=== PATIENT | female | born 1985 | race Caucasian/White ===

== ENCOUNTER 2023-05-03 09:21 | Observation (INO) | payer OTHER ==
[2023-05-03] MEDS ORDERED: Morphine 4 MG/ML VIAL ONE ×3 (10:21→17:16)
[2023-05-03] MEDS ORDERED: Ondansetron PF 4 MG/2 ML Vial ONE ×2 (10:22→17:16)
[2023-05-03 10:23] LABS: #Eosinphils 0.1 thou/uL (0.0-0.7); #Monocytes 0.5 thou/uL (0.11-0.59); #Neutrophils 4.1 thou/uL (1.40-6.50); %Basophils 0.6 % (0.0-1.0); %Eosinophils 0.7 % (0.0-10.0); %Lymphocytes 31.3 % (21.0-51.0); %Monocytes 6.7 % (0.0-10.0); %Neutrophils 60.6 % (42.0-75.0); Hemoglobin 11.4 g/dL (12.0-16.0); Mean Corpuscular HGB CONC 31.1 g/dL (32.0-36.0); Mean Corpuscular Hemoglobin 25.9 pg (27.0-31.0); Mean Platelet Volume 10.1 fL (7.4-10.4); Platelet Count 241 10x3/uL (130-400); RBC Distribution Width 16.1 % (11.5-14.5); Red Blood Cell (RBC) Count 4.41 mill/uL (4.20-5.40); White Blood Cell (WBC) Count 6.7 10x3/uL (4.8-10.8)
[2023-05-03 10:50] LABS: ALT (SGPT) 8 U/L (8-55); AST (SGOT) 14 U/L (5-34); Alkaline Phosphatase 85 U/L (40-110); Anion Gap 10 mmol/L (10-20); BUN (Urea Nitrogen) 9 mg/dL (7.0-18.7); Bilirubin, Total 0.4 mg/dL (0.2-1.2); Calc. Creatinine Clearance 0 mL/min (70-130); Calcium 9.1 mg/dL (7.8-10.44); Carbon Dioxide 24 mmol/L (22-29); Chloride 107 mmol/L (98-107); Estimated GFR 114; Globulin 3.1 g/dL (2.4-3.5); Glucose 88 mg/dL (70-105); Lipase Less than 4 U/L (8-78); Potassium 3.8 mmol/L (3.5-5.1); Protein, Total 7.1 g/dL (6.0-8.3); Sodium 137 mmol/L (136-145)
[2023-05-03] MEDS ORDERED: Pantoprazole 40 MG VIAL ONE (11:02)
[2023-05-03] MEDS ORDERED: Dicyclomine 20 MG TAB ONE (12:12)
[2023-05-03] MEDS ORDERED: Acetaminophen 325 MG TAB PO PRN (13:04)
[2023-05-03] MEDS ORDERED: Nicotine 21 MG PATCH TD PRN (13:13)
[2023-05-03] MEDS: NS 0.9% w/ 20 MEQ KCL 1,000 ML/1,000 ML BAG IV SCH (15:25)
[2023-05-03 15:36] VITALS: BMI 45.3
[2023-05-03] MEDS: Morphine 4 MG/ML VIAL SLOW IVP PRN (17:20)
[2023-05-03] MEDS: Ondansetron PF 4 MG/2 ML Vial IVP PRN (17:20)
[2023-05-03] MEDS: Pantoprazole 40 MG VIAL IVP SCH (21:14)
[2023-05-03] MEDS: Morphine 2 MG/ML VIAL SLOW IVP PRN (21:14)
[2023-05-04] MEDS: Morphine 4 MG/ML VIAL SLOW IVP PRN ×2 (00:22→05:49)
[2023-05-04] MEDS: NS 0.9% w/ 20 MEQ KCL 1,000 ML/1,000 ML BAG IV SCH ×2 (00:27→12:06)
[2023-05-04] MEDS: Ondansetron PF 4 MG/2 ML Vial IVP PRN ×2 (05:50→14:16)
[2023-05-04 06:14] LABS: #Eosinphils 0.2 thou/uL (0.0-0.7); #Monocytes 0.5 thou/uL (0.11-0.59); #Neutrophils 3.1 thou/uL (1.40-6.50); %Basophils 0.7 % (0.0-1.0); %Eosinophils 2.7 % (0.0-10.0); %Lymphocytes 34.9 % (21.0-51.0); %Neutrophils 53.4 % (42.0-75.0); Hemoglobin 10.3 g/dL (12.0-16.0); Mean Corpuscular HGB CONC 29.9 g/dL (32.0-36.0); Mean Corpuscular Hemoglobin 25.5 pg (27.0-31.0); Mean Corpuscular Volume 85.1 fl (78.0-98.0); Mean Platelet Volume 9.8 fL (7.4-10.4); Platelet Count 200 10x3/uL (130-400); RBC Distribution Width 16.2 % (11.5-14.5); Red Blood Cell (RBC) Count 4.04 mill/uL (4.20-5.40); White Blood Cell (WBC) Count 5.9 10x3/uL (4.8-10.8)
[2023-05-04 06:37] LABS: Anion Gap 9 mmol/L (10-20); BUN (Urea Nitrogen) 8 mg/dL (7.0-18.7); Calc. Creatinine Clearance 193 mL/min (70-130); Calcium 8.6 mg/dL (7.8-10.44); Carbon Dioxide 25 mmol/L (22-29); Chloride 109 mmol/L (98-107); Estimated GFR 112; Glucose 89 mg/dL (70-105); Potassium 4.3 mmol/L (3.5-5.1); Sodium 139 mmol/L (136-145)
[2023-05-04] MEDS: Pantoprazole 40 MG VIAL IVP SCH (08:45)
[2023-05-04] MEDS ORDERED: Ketamine 50 MG/ML (10ML VIAL) ONE (10:02)
[2023-05-04] MEDS ORDERED: Lidocaine 1% PF 5 ML VIAL ONE (10:05)
[2023-05-04] MEDS ORDERED: PROPOFOL 200 MG/20 ML VIAL ONE (10:05)
[2023-05-04] MEDS ORDERED: fentaNYL 50 mcg/mL 1 mL Vial ONE ×3 (10:21→11:16)
[2023-05-04] MEDS: Morphine 2 MG/ML VIAL SLOW IVP PRN (14:16)
[2023-05-04 14:38] VITALS: BP 155/96; TEMP 98.6
== END 2023-05-04 14:29 | disposition home or self-care (01) ==
LOC: ERS 09:21 → ERHOLD 12:09 → T4-A 18:55
PROVIDERS: ADMIT Family Medicine; ATTEND Internal Medicine
DX: K27.9 Peptic ulcer, site unspecified, unspecified as acute or chronic, without hemorrhage or perforation (principal); K29.80 Duodenitis without bleeding; K44.9 Diaphragmatic hernia without obstruction or gangrene; F17.210 Nicotine dependence, cigarettes, uncomplicated; Z98.84 Bariatric surgery status; Z90.49 Acquired absence of other specified parts of digestive tract; Z90.710 Acquired absence of both cervix and uterus; Z98.890 Other specified postprocedural states; Z88.6 Allergy status to analgesic agent; Z88.8 Allergy status to other drugs, medicaments and biological substances; Z98.0 Intestinal bypass and anastomosis status
CPT/HCPCS: 36415; 80048; 80053; 83690; 85025; 88305; 96374; 96375; 96376; C9113; G0378; J2270; J2272; J2405; J2704; J3010; J3480

== ENCOUNTER 2023-05-30 09:39 | Emergency (ER) | payer OTHER ==
[2023-05-30] MEDS ORDERED: Morphine 4 MG/ML VIAL ONE ×2 (10:19)
== END 2023-05-30 10:47 | disposition home or self-care (01) ==
LOC: ERS 09:39
DX: M25.552 Pain in left hip (principal)
CPT/HCPCS: 72170; 96374; J2270

== ENCOUNTER 2023-09-14 11:20 | Emergency (ER) | payer OTHER ==
[2023-09-14] MEDS ORDERED: Acetaminophen/Codeine 30-300mg Tablet ONE (13:04)
== END 2023-09-14 13:22 | disposition home or self-care (01) ==
LOC: ERS 11:20
DX: M72.2 Plantar fascial fibromatosis (principal); F17.210 Nicotine dependence, cigarettes, uncomplicated
CPT/HCPCS: 99283

== ENCOUNTER 2023-10-17 19:23 | Inpatient (IN) | payer OTHER ==
[2023-10-17 20:24] LABS: Bacteria/HPF None Seen HPF (None Seen); Bilirubin Negative (Negative); Blood, Urine Negative (Negative); CAUTI Indications for Culture Pelvic or flank pain; Clarity Clear (Clear); Glucose, Urine (Dipstick) Normal (Negative); Ketone, Urine Negative (Negative); Leukocyte Negative Leu/uL (Negative); Nitrite Negative (Negative); Protein, Urine (Dipstick) Negative (Neg-Trace); RBC/HPF 0-3 HPF (0-3); Specific Gravity, Urine 1.003 (1.002-1.036); Squamous Epithelial 0-3 HPF (0-3); Urobilinogen Normal mg/dL (Less than 2); WBC/HPF None Seen HPF (0-3); pH, Urine 5.5 (5.0-9.0)
[2023-10-17 20:25] LABS: Urine Culture Reflex No No
[2023-10-17] MEDS ORDERED: fentaNYL 50 mcg/mL 1 mL Vial ONE ×2 (20:31→20:37)
[2023-10-17] MEDS ORDERED: Acetaminophen 500 MG TAB ONE (20:31)
[2023-10-17 20:37] LABS: #Basophils 0.1 thou/uL (0.0-0.2); #Eosinphils 0.1 thou/uL (0.0-0.7); #Monocytes 0.6 thou/uL (0.11-0.59); %Basophils 0.9 % (0.0-1.0); %Eosinophils 1.1 % (0.0-10.0); %Lymphocytes 41.1 % (21.0-51.0); %Monocytes 7.2 % (0.0-10.0); %Neutrophils 49.6 % (42.0-75.0); Hematocrit 36.4 % (36.0-47.0); Hemoglobin 11.3 g/dL (12.0-16.0); Mean Corpuscular Hemoglobin 25.7 pg (27.0-31.0); Mean Corpuscular Volume 82.9 fl (78.0-98.0); Mean Platelet Volume 9.2 fL (7.4-10.4); Platelet Count 246 10x3/uL (130-400); RBC Distribution Width 16.2 % (11.5-14.5); Red Blood Cell (RBC) Count 4.39 mill/uL (4.20-5.40)
[2023-10-17 20:45] LABS: BHCG - Serum Negative (NEGATIVE); Pregs Control Background? CLEAR/WHITE (CLR/WHITE); Pregs Control Bar Appear? YES (CONTROL BAR)
[2023-10-17 21:11] LABS: ALT (SGPT) 37 U/L (8-55); AST (SGOT) 36 U/L (5-34); Albumin 4.2 g/dL (3.5-5.0); Alkaline Phosphatase 95 U/L (40-110); Anion Gap 12 mmol/L (10-20); BUN (Urea Nitrogen) 11 mg/dL (7.0-18.7); Bilirubin, Total 0.2 mg/dL (0.2-1.2); Calc. Creatinine Clearance 0 mL/min (70-130); Carbon Dioxide 20 mmol/L (22-29); Chloride 110 mmol/L (98-107); Estimated GFR 114; Globulin 3.3 g/dL (2.4-3.5); Glucose 84 mg/dL (70-105); Potassium 3.4 mmol/L (3.5-5.1); Protein, Total 7.5 g/dL (6.0-8.3); Sodium 139 mmol/L (136-145)
[2023-10-17] MEDS ORDERED: LORazepam 2 MG/ML SYR.(CARPUJECT) ONE (21:27)
[2023-10-17] MEDS ORDERED: Dexmedetomidine 400 MCG, Admixture Fee 1 EACH in Sodium Chloride 0.9% 96 ML IVPB SCH (22:15)
[2023-10-17] MEDS ORDERED: Dexamethasone 10 MG/ML VIAL ONE (23:45)
[2023-10-17] MEDS ORDERED: Gabapentin 300 MG CAP PO SCH (23:59)
[2023-10-18] MEDS ORDERED: Ondansetron ODT 4 MG TAB SL PRN (01:45)
[2023-10-18] MEDS ORDERED: Acetaminophen 325 MG TAB PO PRN (01:45)
[2023-10-18] MEDS ORDERED: Ondansetron PF 4 MG/2 ML Vial IVP PRN (01:45)
[2023-10-18] MEDS ORDERED: Cyclobenzaprine 10 MG TAB PO PRN (01:51)
[2023-10-18] MEDS ORDERED: Acetaminophen 650 MG Suppository PR PRN (01:52)
[2023-10-18 02:33] VITALS: BMI 44.8
[2023-10-18] MEDS ORDERED: Electrolyte Replacement Protocol 1 EACH FS SCH (03:00)
[2023-10-18] MEDS ORDERED: Pantoprazole 40 MG VIAL IVP SCH (04:00)
[2023-10-18 05:01] LABS: Hematocrit 38.3 % (36.0-47.0); Hemoglobin 11.7 g/dL (12.0-16.0); Mean Corpuscular HGB CONC 30.5 g/dL (32.0-36.0); Mean Corpuscular Hemoglobin 25.8 pg (27.0-31.0); Mean Corpuscular Volume 84.4 fl (78.0-98.0); Mean Platelet Volume 10.1 fL (7.4-10.4); Platelet Count 245 10x3/uL (130-400); RBC Distribution Width 16.2 % (11.5-14.5); Red Blood Cell (RBC) Count 4.54 mill/uL (4.20-5.40); White Blood Cell (WBC) Count 7.1 10x3/uL (4.8-10.8)
[2023-10-18 05:07] LABS: Delete Auto Diff?? YES; Manual Diff?? YES
[2023-10-18] MEDS ORDERED: Morphine 4 MG/ML VIAL SLOW IVP PRN (05:17)
[2023-10-18 05:24] LABS: Anion Gap 13 mmol/L (10-20); BUN (Urea Nitrogen) 10 mg/dL (7.0-18.7); Calc. Creatinine Clearance 200 mL/min (70-130); Carbon Dioxide 19 mmol/L (22-29); Chloride 109 mmol/L (98-107); Estimated GFR 115; Glucose 118 mg/dL (70-105); Magnesium 1.9 mg/dL (1.6-2.6); Potassium 4.2 mmol/L (3.5-5.1); Sodium 137 mmol/L (136-145)
[2023-10-18 05:28] LABS: Band 1 % (5-11); CellaVision Operator ID LAB.CLH1; Hypochromia SLIGHT = 6-15 cells HPF (0-5); Lymphocytes 15 % (21-51); Microcytosis SLIGHT = 6-15 cells HPF (0-5); Neutrophil 84 % (42-75); Platelet Adequacy Comment Platelets Normal; Polychromasia SLIGHT = 2-3 cells HPF (0-2); Total Cell Count 100
[2023-10-18] MEDS ORDERED: Dexamethasone 4 mg/ml Vial SLOW IVP SCH (06:00)
[2023-10-18] MEDS ORDERED: Magnesium 2 GM/50 ML(in water) 2 GM in Premix 1 BAG IVPB SCH (08:00)
[2023-10-18] MEDS ORDERED: Acetaminophen/Codeine 30-300mg Tablet PO PRN (08:56)
[2023-10-18] MEDS ORDERED: Gabapentin 300 MG CAP PO SCH (09:00)
[2023-10-18] MEDS: Gabapentin 300 MG CAP PO SCH ×3 (09:19→20:14)
[2023-10-18] MEDS: Acetaminophen/Codeine 30-300mg Tablet PO PRN ×3 (09:30→21:37)
[2023-10-18] MEDS: Dexamethasone 4 MG TAB PO SCH ×2 (13:10→17:06)
[2023-10-19] MEDS: Dexamethasone 4 MG TAB PO SCH ×5 (00:17→23:06)
[2023-10-19] MEDS: Acetaminophen/Codeine 30-300mg Tablet PO PRN ×4 (03:47→23:06)
[2023-10-19 04:19] LABS: #Monocytes 0.4 thou/uL (0.11-0.59); #Neutrophils 9.1 thou/uL (1.40-6.50); %Basophils 0.1 % (0.0-1.0); %Lymphocytes 12.7 % (21.0-51.0); %Monocytes 3.8 % (0.0-10.0); %Neutrophils 82.9 % (42.0-75.0); Hematocrit 35.5 % (36.0-47.0); Hemoglobin 10.8 g/dL (12.0-16.0); Mean Corpuscular HGB CONC 30.4 g/dL (32.0-36.0); Mean Corpuscular Hemoglobin 25.6 pg (27.0-31.0); Mean Corpuscular Volume 84.1 fl (78.0-98.0); Mean Platelet Volume 11.2 fL (7.4-10.4); RBC Distribution Width 16.4 % (11.5-14.5); Red Blood Cell (RBC) Count 4.22 mill/uL (4.20-5.40); White Blood Cell (WBC) Count 10.9 10x3/uL (4.8-10.8)
[2023-10-19 04:25] LABS: Platelet Count 138 10x3/uL (130-400)
[2023-10-19 04:49] LABS: Anion Gap 14 mmol/L (10-20); BUN (Urea Nitrogen) 13 mg/dL (7.0-18.7); Calc. Creatinine Clearance 203 mL/min (70-130); Calcium 8.7 mg/dL (7.8-10.44); Carbon Dioxide 18 mmol/L (22-29); Chloride 110 mmol/L (98-107); Estimated GFR 115; Glucose 118 mg/dL (70-105); Magnesium 2.2 mg/dL (1.6-2.6); Potassium 4.3 mmol/L (3.5-5.1); Sodium 138 mmol/L (136-145)
[2023-10-19] MEDS ORDERED: fentaNYL PF 100 MCG/2 ML SYRINGE ONE (07:28)
[2023-10-19] MEDS ORDERED: Midazolam HCl 2 mg/2 ml Vial ONE (07:28)
[2023-10-19] MEDS ORDERED: HYDROcodone/Acetaminophen 5/325 mg Tablet PO PRN ×2 (08:13→08:16)
[2023-10-19] MEDS ORDERED: Magnevist 469MG/ML 20 ML VIAL ONE ×2 (09:22)
[2023-10-19] MEDS: Gabapentin 300 MG CAP PO SCH ×3 (10:23→20:36)
[2023-10-19] MEDS ORDERED: fentaNYL 50 mcg/mL 1 mL Vial ONE (10:43)
[2023-10-19] MEDS: Pantoprazole 40 MG VIAL IVP SCH (11:23)
[2023-10-19] MEDS ORDERED: Ondansetron PF 4 MG/2 ML Vial IVP PRN (11:41)
[2023-10-20 04:15] VITALS: TEMP 97.5
[2023-10-20] MEDS: Acetaminophen/Codeine 30-300mg Tablet PO PRN ×2 (05:08→10:56)
[2023-10-20] MEDS: Dexamethasone 4 MG TAB PO SCH ×2 (05:09→10:57)
[2023-10-20] MEDS: Gabapentin 300 MG CAP PO SCH (08:35)
[2023-10-20] MEDS: Pantoprazole 40 MG VIAL IVP SCH (08:35)
[2023-10-20 10:28] VITALS: BP 131/87
== END 2023-10-20 11:30 | disposition home or self-care (01) | DRG 552 ==
LOC: ERS 19:23 → 2SE 23:51
PROVIDERS: ADMIT Student in an Organized Health Care Education/Training Program; ATTEND Internal Medicine
DX: M47.816 Spondylosis without myelopathy or radiculopathy, lumbar region (principal); R32 Unspecified urinary incontinence; R20.0 Anesthesia of skin; E87.6 Hypokalemia; G89.29 Other chronic pain; Z88.5 Allergy status to narcotic agent; Z88.8 Allergy status to other drugs, medicaments and biological substances; Z79.899 Other long term (current) drug therapy; Z98.890 Other specified postprocedural states
CPT/HCPCS: 36415; 72157; 72158; 80048; 80053; 81001; 83735; 84703; 85025; 86140; A9579; C9113; J1100; J2060; J2250; J2270; J3010; J3475; J3490; J8540

== ENCOUNTER 2024-10-11 10:02 | Emergency (ER) | payer OTHER ==
[2024-10-11] MEDS ORDERED: HYDROcodone/Acetaminophen 10/325 mg Tablet ONE (11:20)
== END 2024-10-11 12:23 | disposition home or self-care (01) ==
LOC: ERS 10:02
DX: M47.816 Spondylosis without myelopathy or radiculopathy, lumbar region (principal); M47.817 Spondylosis without myelopathy or radiculopathy, lumbosacral region; F17.210 Nicotine dependence, cigarettes, uncomplicated; W19.XXXA Unspecified fall, initial encounter; Y93.89 Activity, other specified
CPT/HCPCS: 72100; 99283

== ENCOUNTER 2024-10-14 10:57 | Emergency (ER) | payer OTHER ==
[2024-10-14] MEDS ORDERED: HYDROcodone/Acetaminophen 10/325 mg Tablet ONE (11:24)
[2024-10-14 12:46] LABS: Bacteria/HPF None Seen HPF (None Seen); Bilirubin Negative (Negative); Blood, Urine Negative (Negative); CAUTI Indications for Culture Alt mental st,lethar; Clarity Clear (Clear); Glucose, Urine (Dipstick) Normal (Negative); Ketone, Urine Negative (Negative); Leukocyte Negative Leu/uL (Negative); Nitrite Negative (Negative); Protein, Urine (Dipstick) Negative (Neg-Trace); RBC/HPF 0-3 HPF (0-3); Specific Gravity, Urine 1.014 (1.002-1.036); Squamous Epithelial 0-3 HPF (0-3); Urobilinogen Normal mg/dL (Less than 2); WBC/HPF 0-3 HPF (0-3); pH, Urine 5.5 (5.0-9.0)
[2024-10-14 12:47] LABS: Pregnancy Test - Urine (BHCG) Negative (Negative); Pregu Control Background? CLEAR/WHITE (CLR/WHITE); Pregu Control Bar Appear? YES (CONTROL BAR); Specific Gravity 1.014 (1.002-1.036); Urine Culture Reflex No No
== END 2024-10-14 12:53 | disposition home or self-care (01) ==
LOC: ERS 10:57
DX: M54.50 Low back pain, unspecified (principal); G89.29 Other chronic pain; F17.210 Nicotine dependence, cigarettes, uncomplicated
CPT/HCPCS: 72131; 81001; 81025